=== PATIENT | male | born 1980 | race Caucasian/White ===

== ENCOUNTER → 2017-07-21 | Outpatient (CLI) | payer BC ==
[2017-07-21 12:26] LABS: BASO % 0.5 % (0.0-1.0); EOS # 0.1 10*3/uL (0.0-0.4); EOS % 0.6 % (1.0-4.0); HEMATOCRIT 46.9 % (42.0-52.0); HEMOGLOBIN 16.2 g/dl (14.0-18.0); LYMPH # 2.1 10*3/uL (1.3-4.4); LYMPH % 24.3 % (27.0-41.0); MEAN CELL VOLUME 89.8 fl (80.0-94.0); MEAN CORPUSCULAR HGB CONC 34.5 g/dl (33.0-37.0); MEAN PLATELET VOLUME 9.9 fl (9.6-12.3); MONO # 0.7 10*3/uL (0.1-1.0); MONO % 7.7 % (3.0-9.0); NEUT # 5.7 10*3/uL (2.3-7.9); NEUT % 66.6 % (47.0-73.0); PLATELET COUNT AUTOMATED 271 10*3/uL (130-400); RED BLOOD COUNT 5.22 10*6/uL (4.50-5.90); RED CELL DISTRI WIDTH 12.6 % (0-14.5); WHITE BLOOD COUNT 8.6 10*3/uL (4.8-10.8)
[2017-07-21 12:29] LABS: ALBUMIN 3.9 gm/dl (3.1-4.5); ALKALINE PHOSPHATASE 61 U/L (45-117); BILIRUBIN, DIRECT 0.1 mg/dL (0.0-0.2); BUN 13 mg/dl (7-24); CHLORIDE 103 mmol/L (98-107); CREATININE 0.96 mg/dL (0.70-1.30); FREE T4 0.87 ng/dl (0.76-1.46); POTASSIUM 4.5 mmol/L (3.5-5.1); SGOT/AST 25 IU/L (3-35); SGPT/ALT 64 U/L (12-78); SODIUM 141 mmol/L (136-145); TOTAL PROTEIN 7.5 gm/dL (6.4-8.2)
[2017-07-21 12:35] LABS: THYROID STIM HORMONE (HS) 0.484 uIU/ml (0.358-4.75)
[2017-07-22 14:05] LABS: HIV 1+2 AB + HIV1 P24 AG Non Reactive (Non Reactive)
== END | disposition home or self-care (01) ==
LOC: LAB 11:22
PROVIDERS: Internal Medicine
DX: Z11.4 Encounter for screening for human immunodeficiency virus [HIV] (principal); I10 Essential (primary) hypertension; K76.6 Portal hypertension; R63.4 Abnormal weight loss; D81.89 Other combined immunodeficiencies

== ENCOUNTER → 2017-08-08 | Outpatient (CLI) | payer BC, OTHER | END | disposition home or self-care (01) | LOC: RAD 13:03 | DX: M54.5 Low back pain (principal) ==

== ENCOUNTER 2020-08-01 13:19 | Emergency (ER) | payer BC | END 2020-08-01 15:18 | disposition home or self-care (01) | LOC: ED 13:19 | DX: S30.0XXA Contusion of lower back and pelvis, initial encounter (principal); M79.641 Pain in right hand; W10.8XXA Fall (on) (from) other stairs and steps, initial encounter; Y93.01 Activity, walking, marching and hiking; Y92.89 Other specified places as the place of occurrence of the external cause; Y99.8 Other external cause status ==

== ENCOUNTER 2022-06-19 17:06 | Emergency (ER) | payer BC ==
[~2022-06-19] VITALS: Wt 99.8 kg
== END 2022-06-19 19:01 | disposition left against medical advice (07) ==
LOC: ED 17:06
DX: Z53.21 Procedure and treatment not carried out due to patient leaving prior to being seen by health care provider (principal)

== ENCOUNTER 2025-01-24 22:34 | Emergency (ER) | payer BC, OTHER ==
[~2025-01-24] VITALS: Ht 170.1 cm; Wt 108.9 kg
== END 2025-01-25 01:13 | disposition left against medical advice (07) ==
LOC: ED 22:34
DX: S01.312A Laceration without foreign body of left ear, initial encounter (principal); W22.8XXA Striking against or struck by other objects, initial encounter; Y93.89 Activity, other specified; Y92.89 Other specified places as the place of occurrence of the external cause; Y99.8 Other external cause status